=== PATIENT | female | born 1980 | race Caucasian/White ===

== ENCOUNTER 2016-10-07 21:18 | Inpatient (IN) | payer BC, OTHER ==
[2016-10-07 22:18] VITALS: BMI 28.6
[2016-10-07] MEDS ORDERED: Lactated Ringer's 1,000 ML IV SCH (22:30)
[2016-10-07] MEDS ORDERED: Dextrose 5%/Lactated Ringer's 1,000 ML IV SCH (22:30)
[2016-10-07] MEDS ORDERED: Nalbuphine 20 mg/ml Inj (1 ml) IVP PRN (22:30)
[2016-10-07 23:01] LABS: CHLORIDE 99 mmol/L (98-107)
[2016-10-07 23:02] LABS: POTASSIUM 3.8 mmol/L (3.6-5.2); SODIUM 136 mmol/L (132-148)
[2016-10-07 23:04] LABS: ALB/GLOB RATIO 0.9 (1.0-2.1); ALKALINE PHOSPHATASE 140 U/L (38-126); AST/SGOT 40 U/L (14-36); BILIRUBIN,TOTAL 0.6 mg/dL (0.2-1.3); CARBON DIOXIDE 22 mmol/L (22-30); GFR AFRICAN-AMERICAN > 60; TOTAL PROTEIN 7.1 g/dL (6.3-8.3)
[2016-10-07 23:05] LABS: ALT/SGPT 23 U/L (9-52); BLOOD UREA NITROGEN 10 mg/dL (7-17); CALCIUM 9.4 mg/dl (8.6-10.4); GLUCOSE,RANDOM 101 mg/dL (65-105); URIC ACID 3.5 mg/dL (2.2-7.5)
[2016-10-07 23:33] LABS: RBC URINE 14 /hpf (0-3); URINE BACTERIA OCC (<OCC); URINE BILIRUBIN NEGATIVE (NEGATIVE); URINE BLOOD NEGATIVE (NEGATIVE); URINE CALCIUM OXALATE CRYSTALS OCC /hpf (<OCC); URINE COLOR Yellow (YELLOW); URINE GLUCOSE (UA) 1+ mg/dL (Normal); URINE KETONE NEGATIVE (NEGATIVE); URINE LEUKOCYTE ESTERASE 2+ Leu/uL (Negative); URINE PROTEIN NEGATIVE (NEGATIVE); URINE UROBILINOGEN NORMAL mg/dL (0.2-1.0); WBC URINE 53 /hpf (0-5)
[2016-10-07 23:43] LABS: BASO % 0.2 % (0.0-2.0); EOS # 0.1 K/uL (0.0-0.7); EOS % 1.1 % (0.0-4.0); HEMATOCRIT 34.7 % (34.0-47.0); LYMPH # 1.6 K/uL (1.0-4.3); LYMPH % 29.6 % (20.0-40.0); MEAN CELL VOLUME 88.8 fL (81.0-99.0); MEAN CORPUSCULAR HEMOGLOBIN 30.2 pg (27.0-31.0); MEAN PLATELET VOLUME 9.4 fL (7.2-11.7); MONO # 0.7 K/uL (0.0-0.8); MONO % 11.9 % (0.0-10.0); NRBC % 0.1 % (0.0-2.0); RED CELL DISTRIBUTION WIDTH 14.1 % (11.5-14.5); WHITE BLOOD COUNT 5.5 K/uL (4.8-10.8)
[2016-10-08 00:10] LABS: INR 0.9
[2016-10-08] MEDS ORDERED: Nalbuphine 20 mg/ml Inj (1 ml) ONE (00:36)
[2016-10-08] MEDS ORDERED: Oxytocin 30 UNIT 500 ML IV PRN (04:34)
[2016-10-08] MEDS ORDERED: Bupivacaine 0.125%/FentaNYL 200 ML EPI ONE (05:48)
[2016-10-08] MEDS ORDERED: Lidocaine 2% Inj (20ml) ONE (07:50)
[2016-10-09 08:24] LABS: HEMATOCRIT 30.3 % (34.0-47.0); MEAN CELL VOLUME 88.9 fL (81.0-99.0); MEAN CORPUSCULAR HEMOGLOBIN 29.8 pg (27.0-31.0); MEAN CORPUSCULAR HGB CONC 33.5 g/dL (33.0-37.0); MEAN PLATELET VOLUME 9.1 fL (7.2-11.7); WHITE BLOOD COUNT 10.6 K/uL (4.8-10.8)
[2016-10-10 00:19] VITALS: RESP 20
[2016-10-10 08:20] VITALS: BP 107/60; PULSE 89; TEMP 98.1; O2SAT 98
[2016-10-10] MEDS ORDERED: Measles, Mumps, and Rubella Vaccine SC ONE (09:34)
[2016-10-10] MEDS ORDERED: Influenza Virus Vaccine 45 mcg/0.5 ml Syr IM ONE (10:00)
== END 2016-10-10 12:15 | disposition home or self-care (01) | DRG 775 ==
LOC: C.EROB 21:18 → C.4D 22:11 → C.4M 10-08 09:50
PROVIDERS: ADMIT Obstetrics & Gynecology; ATTEND Obstetrics & Gynecology
PROC: 10E0XZZ Delivery of Products of Conception, External Approach (ICD-10-PCS; principal; 2016-10-08)
DX: O26.893 Other specified pregnancy related conditions, third trimester (principal); O09.523 Supervision of elderly multigravida, third trimester; L29.9 Pruritus, unspecified; Z23 Encounter for immunization; Z3A.39 39 weeks gestation of pregnancy; Z37.0 Single live birth